=== PATIENT | male | born 1995 | race Caucasian/White ===

== ENCOUNTER → 2016-06-01 | Outpatient (CLI) | payer OTHER ==
[~2016-06-01] MED LIST: GADOBUTROL 10mMol/10ml INJECTION IV ONE; IOTHALAMATE MEGLUMINE 60% (600mg/ml) 30ml INJ IV ONE; NORMAL SALINE 50 ML IV ONE
--- NOTE | 2016-06-01 15:18 | DI ---
Indication:ITS.REASON: S49.91XA INJURY Procedure:ARTHROGRAM SHOULDER RT W/FL. SHOULDER INJECTION FOR MRI ARTHROGRAM: After discussing the details of the procedure, including the risks, the patient wished to proceed. Informed consent was obtained. A preprocedural timeout was performed to confirm the correct patient and procedure. Using aseptic technique, local lidocaine anesthetic, and fluoroscopic guidance throughout, a 22-gauge infiltrating needle was directed through the rotator cuff interval and into the joint of the right shoulder. A small amount of x-ray contrast was injected to confirm proper intra-articular placement of the needle tip. A fluoroscopic image was obtained. Following this, 8 cc of dilute gadolinium were slowly instilled within the joint of the right shoulder. The needle was removed. The patient tolerated this procedure well. Following this, he was taken to MRI via wheelchair for his scan. Please see the separate MRI report. Impression: Technically successful right intra-articular shoulder joint injection for a MRI arthrogram. Fluoroscopy dose: 2.06 mGy (Cumulative air kerma) Uzair Atkins RPA/MALIA performed this under my personal supervision. .
--- NOTE | 2016-06-01 15:51 | DI ---
EXAM: MRI SHOULDER RIGHT W/CONTRAST DATE: 06/01/2016 12:00 AM SITE OF DICTATION: Imaging Center INDICATION: ITS.REASON: S49.91XA INJURY COMPARISON: Right shoulder arthrogram performed 06/01/2016 TECHNIQUE: Multiplanar/multisequence imaging of the right shoulder was performed with intra-articular gadolinium administration. Imaging was performed in the sagittal, axial and coronal planes.. FINDINGS: The osseous structures of the right shoulder are of normal marrow signal intensity and contour maintaining normal anatomic alignment at the articular surfaces. There is no evidence of occult bony injury. Joint spaces are well-maintained. The supraspinatus muscle belly appears normal signal intensity and contour. There is mild signal increase in the supraspinatus tendon suggesting tendinosis. The subscapularis, teres minor and infraspinatus tendons appear intact. There is a normal distribution of the intra-articular dilute gadolinium mixture. There was no evidence of extravasation of contrast into the subacromial/subdeltoid bursa to suggest presence of a rotator cuff tear. There is a small amount of fluid in the subacromial/subdeltoid bursa on the T2-weighted images only suggesting a mild bursitis. The superior, middle and inferior glenohumeral ligaments appear intact. The biceps tendon is appropriately situated within the bicipital groove without subluxation. The biceps labral complex appears intact. The glenoid labrum appears intact without tear. No discrete soft tissue lesions or axillary lymphadenopathy. IMPRESSION: 1.. Supraspinatus tendinosis but no evidence of full-thickness rotator cuff tear. 2. Mild subacromial/subdeltoid bursitis. 3. No evidence of glenoid labral or biceps tendon injury. 4. No evidence of focal bony injury. .
== END ==
LOC: IMA 13:43
PROVIDERS: ATTEND Family Medicine Sports Medicine
DX: M75.51 Bursitis of right shoulder (principal); M75.81 Other shoulder lesions, right shoulder